=== PATIENT | female | born 1960 | race Caucasian/White ===

== ENCOUNTER 2022-01-04 07:47 | Emergency (ER) | payer MEDICAID ==
[~2022-01-04] VITALS: Ht 160 cm; Wt 105.7 kg
--- OUTSIDE RECORDS SUMMARY | 2022-01-04 07:56 | XMS ---
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 E.D. VISIT COUNT (12 MO.) 2 MAN [place] TOTAL 2 NOTE: Visits indicate total known visits. ED/UCC VISIT TRACKING (12 MO.) 01/04/2022 07:49 [facility] TYPE: Emergency COMPLAINT: - HANDS, FACE SWELLING 01/03/2022 16:09 [facility] TYPE: Emergency COMPLAINT: - ALLERGIC REACTION INPATIENT VISIT TRACKING (12 MO.) No inpatient visits to display in this time frame [email or web address]
[2022-01-04] MEDS ORDERED: PREDNISONE20 MG PO (08:14)
== END 2022-01-04 08:36 | disposition home or self-care (01) ==
LOC: ED 07:47
DX: T78.40XA Allergy, unspecified, initial encounter (principal); E11.9 Type 2 diabetes mellitus without complications; I10 Essential (primary) hypertension; E78.5 Hyperlipidemia, unspecified; Z88.2 Allergy status to sulfonamides
CPT/HCPCS: 99283; J7512